=== PATIENT | male | born 1985 | race Caucasian/White ===

== ENCOUNTER 2018-07-18 16:15 | Outpatient (CLI) | payer OTHER | END 2018-07-18 16:17 | LOC: LAB 16:15 | PROVIDERS: ATTEND Family Medicine | DX: Z02.82 Encounter for adoption services (principal); Z11.4 Encounter for screening for human immunodeficiency virus [HIV]; Z02.89 Encounter for other administrative examinations | CPT/HCPCS: 36415; 80377; 86703; G0481 ==